=== PATIENT | male | born 1980 ===

== ENCOUNTER 2018-06-30 13:13 | Observation (INO) | payer MEDICAID ==
[2018-06-30] MEDS: NITROGLYCERIN 0.4MG SL TABLET #25 BTL SL PRN ×3 (13:43→13:59)
[2018-06-30 13:46] LABS: BASO % 0.2 % (0-6); EOS % 0.4 % (0-6); GRAN % 68.9 % (47-80); HEMATOCRIT 42.3 % (42.0-52.0); HEMOGLOBIN 14.6 gm/dl (14.0-18.0); LYMPH % 18.8 % (16-45); MEAN CELL VOLUME 84.4 fl (81-97); MEAN CORPUSCULAR HEMOGLOBIN 29.1 pg (27-33); MEAN CORPUSCULAR HGB CONC 34.5 g/dl (32-36); MONO % 11.7 % (0-9); PLATELET COUNT 400 K/uL (130-400); RED BLOOD COUNT 5.01 M/uL (4.40-5.70); RED CELL DISTRIBUTION WIDTH 13.5 % (11.5-14.5); WHITE BLOOD COUNT W/O DIFF 13.4 K/uL (4.2-12.2)
[2018-06-30 13:55] LABS: BLOOD UREA NITROGEN 15 mg/dL (6-20)
[2018-06-30 13:56] LABS: CREATININE 1.1 mg/dL (0.7-1.2); EST GLOMERULAR FILTRATION RATE > 60 mL/min; TOTAL PROTEIN 7.5 g/dL (6.6-8.7)
[2018-06-30 13:58] LABS: GLUCOSE,RANDOM 112 mg/dL (74-109)
[2018-06-30 14:01] LABS: ALB/GLOB RATIO 1.6 (1.1-1.8); ALBUMIN 4.6 g/dL (4.0-5.0); ALKALINE PHOSPHATASE 72 U/L (55-149); ALT/SGPT 30 U/L (<41); AST/SGOT 68 U/L (10.0-50.0)
[2018-06-30 14:19] LABS: CREATINE PHOSPHOKINASE 4060 U/L (39-308)
[2018-06-30] MEDS ORDERED: KETOROLAC 30 MG/ML VIAL IVP ONE (14:20)
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
[2018-06-30] MEDS ORDERED: 0.9 % SODIUM CHLORIDE 1,000 ML BAG IV ONE (14:32)
[2018-06-30 16:59] LABS: URINE BILIRUBIN NEGATIVE (NEGATIVE); URINE BLOOD NEGATIVE (NEGATIVE); URINE COLOR YELLOW; URINE GLUCOSE (UA) NEGATIVE (NEGATIVE); URINE KETONE 15 mg/dL (NEGATIVE); URINE LEUKOCYTE ESTERASE SMALL (NEGATIVE); URINE NITRITE NEGATIVE (NEGATIVE); URINE PROTEIN NEGATIVE (NEGATIVE); URINE UROBILINOGEN 0.2 E.U./dL (0.20 - 1.00)
[2018-06-30 17:05] LABS: URINE APPEARANCE SL CLOUDY
[2018-06-30 17:06] LABS: URINE BACTERIA FEW; URINE MUCUS MODERATE; URINE RBC NONE SEEN (NONE SEEN)
[2018-06-30] MEDS ORDERED: NITROGLYCERIN 0.4MG SL TABLET #25 BTL SL PRN (17:57)
[2018-06-30] MEDS ORDERED: 0.9 % SODIUM CHLORIDE 1000ML 1,000 ML IV PRN (17:57)
[2018-06-30] MEDS ORDERED: TEMAZEPAM 15 MG CAPSULE PO PRN (17:57)
[2018-06-30] MEDS: ACETAMINOPHEN 500 MG TABLET PO PRN (20:14)
[2018-06-30] MEDS: TRAMADOL HCL 50 MG TABLET PO PRN (22:08)
[2018-06-30 23:15] LABS: BASO % 0.3 % (0-6); EOS % 1.4 % (0-6); GRAN % 56.2 % (47-80); HEMATOCRIT 40.4 % (42.0-52.0); HEMOGLOBIN 13.4 gm/dl (14.0-18.0); LYMPH % 31.6 % (16-45); MEAN CELL VOLUME 86.3 fl (81-97); MEAN CORPUSCULAR HEMOGLOBIN 28.6 pg (27-33); MEAN CORPUSCULAR HGB CONC 33.2 g/dl (32-36); MEAN PLATELET VOLUME 9.3 fl (7.4-10.4); MONO % 10.5 % (0-9); PLATELET COUNT 392 K/uL (130-400); RED BLOOD COUNT 4.68 M/uL (4.40-5.70); RED CELL DISTRIBUTION WIDTH 13.5 % (11.5-14.5); WHITE BLOOD COUNT W/O DIFF 12.2 K/uL (4.2-12.2)
[2018-06-30 23:31] LABS: ALB/GLOB RATIO 1.4 (1.1-1.8); ALKALINE PHOSPHATASE 71 U/L (55-149); ALT/SGPT 33 U/L (<41); AST/SGOT 83 U/L (10.0-50.0); BLOOD UREA NITROGEN 18 mg/dL (6-20); CREATININE 1.3 mg/dL (0.7-1.2); EST GLOMERULAR FILTRATION RATE > 60 mL/min; GLUCOSE,RANDOM 108 mg/dL (74-109); TOTAL PROTEIN 6.8 g/dL (6.6-8.7)
[2018-06-30 23:32] LABS: CKMB 6.7 ng/mL (<6.73)
[2018-07-01 00:36] LABS: CKMB RELATIVE INDEX 0.1 % (0-4)
[2018-07-01] MEDS: 0.9 % SODIUM CHLORIDE 1000ML 1,000 ML IV PRN ×3 (02:00→20:00)
[2018-07-01] MEDS: TRAMADOL HCL 50 MG TABLET PO PRN ×2 (05:27→18:05)
[2018-07-01] MEDS: ACETAMINOPHEN 500 MG TABLET PO PRN (06:26)
--- NOTE | 2018-07-01 07:20 | RADIOLOGY REPORT ---
EXAM: CHEST, TWO VIEWS HISTORY: CHEST PAIN. TECHNIQUE: Two views of the chest were obtained. Comparison: None. FINDINGS: The cardiac silhouette is within normal size limits. No focal pulmonary consolidation. No pleural effusion or pneumothorax. No definite acute osseous findings. IMPRESSION: NO ACUTE CHEST FINDINGS. JOB NUMBER: [id number] MTDD
[2018-07-01 07:25] LABS: BASO % 0.3 % (0-6); EOS % 1.5 % (0-6); GRAN % 62.2 % (47-80); HEMOGLOBIN 13.3 gm/dl (14.0-18.0); LYMPH % 23.6 % (16-45); MEAN CELL VOLUME 86.6 fl (81-97); MEAN CORPUSCULAR HEMOGLOBIN 28.7 pg (27-33); MEAN CORPUSCULAR HGB CONC 33.3 g/dl (32-36); MEAN PLATELET VOLUME 8.6 fl (7.4-10.4); MONO % 12.4 % (0-9); PLATELET COUNT 366 K/uL (130-400); RED BLOOD COUNT 4.62 M/uL (4.40-5.70); RED CELL DISTRIBUTION WIDTH 13.5 % (11.5-14.5); WHITE BLOOD COUNT W/O DIFF 10.2 K/uL (4.2-12.2)
[2018-07-01 07:42] LABS: ALB/GLOB RATIO 1.4 (1.1-1.8); ALBUMIN 3.9 g/dL (4.0-5.0); ALKALINE PHOSPHATASE 64 U/L (55-149); ALT/SGPT 32 U/L (<41); AST/SGOT 73 U/L (10.0-50.0); BLOOD UREA NITROGEN 12 mg/dL (6-20); EST GLOMERULAR FILTRATION RATE > 60 mL/min; GLUCOSE,RANDOM 101 mg/dL (74-109); TOTAL PROTEIN 6.6 g/dL (6.6-8.7)
[2018-07-01 07:54] LABS: CKMB 6.3 ng/mL (<6.73)
[2018-07-01] MEDS: MORPHINE SULFATE 10 MG/ML VIAL IVP PRN ×3 (08:16→18:06)
[2018-07-01 08:26] LABS: CKMB RELATIVE INDEX 0.1 % (0-4)
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
[2018-07-01 09:48] LABS: AMPHETAMINE SCREEN URINE DETECTED; BARBITURATE SCREEN URINE NOT DETECTED; BENZODIAZEPINE SCREEN URINE DETECTED; COCAINE SCREEN URINE NOT DETECTED; METHADONE SCREEN URINE NOT DETECTED; METHAMPHETAMINE SCREEN DETECTED; OPIATE SCREEN URINE DETECTED; OXYCODONE SCREEN URINE NOT DETECTED; PHENCYCLIDINE SCREEN URINE NOT DETECTED; PROPOXYPHENE SCREEN URINE NOT DETECTED; THC SCREEN URINE DETECTED; TRICYCLIC ANTIDEPRESSANT SCRN NOT DETECTED
[2018-07-01] MEDS: ASPIRIN 325 MG TAB ENTERIC-COATED PO SCH (14:17)
[2018-07-02] MEDS: 0.9 % SODIUM CHLORIDE 1000ML 1,000 ML IV PRN (04:00)
[2018-07-02] MEDS: TRAMADOL HCL 50 MG TABLET PO PRN (06:48)
[2018-07-02] MEDS: ACETAMINOPHEN 500 MG TABLET PO PRN (06:49)
[2018-07-02 07:02] LABS: BLOOD UREA NITROGEN 7 mg/dL (6-20); CREATININE 0.9 mg/dL (0.7-1.2); EST GLOMERULAR FILTRATION RATE > 60 mL/min; GLUCOSE,RANDOM 93 mg/dL (74-109)
[2018-07-02 07:13] LABS: CREATINE PHOSPHOKINASE 2354 U/L (39-308)
[2018-07-02] MEDS: ASPIRIN 325 MG TAB ENTERIC-COATED PO SCH (09:13)
--- NOTE | 2018-07-02 10:13 | Discharge Summary ---
Providers Discharge Summary Date: 07/02/18 Date of admission: 06/30/18 17:37 Attending physician: LARA BAXTER Consults: Consult Orders 06/30/18 19:24 Consult - Case Management Now Comment: Reason For Exam: homeless Physical Exam - Vital Signs Vital Signs: Vital Signs - Last 24 Hrs Temp Pulse Resp BP Pulse Ox 07/02/18 09:02 97.8 F 81 16 129/77 98 07/02/18 09:00 85 16 07/02/18 06:00 98.1 F 64 18 137/86 95 07/01/18 21:00 71 20 07/01/18 20:00 97.8 F 71 20 159/90 97 07/01/18 17:00 98.1 F 82 18 160/102 98 07/01/18 13:00 98.0 F 73 18 158/94 97 - General General Appearance: Alert, Oriented x3, Cooperative, Mild distress Limitations: No limitations - Head Head exam: Normal inspection - Eye Eye exam: Normal appearance, PERRL, EOMI Pupils: Normal accommodation - ENT ENT exam: Normal exam, Mucous membranes moist, Normal external ear exam, Normal orophraynx Ear exam: Normal external inspection. negative: External canal tenderness Nasal Exam: Normal inspection. negative: Discharge, Sinus tenderness Mouth exam: Normal external inspection, Tongue normal Teeth exam: Normal inspection. negative: Dental caries Throat exam: Normal inspection. negative: Tonsillar erythema, Tonsillar exudate - Neck Neck exam: Normal inspection, Full ROM. negative: Tenderness - Respiratory Respiratory exam: Normal lung sounds bilaterally. negative: Respiratory distress - Cardiovascular Cardiovascular Exam: Regular rate, Normal rhythm, Normal heart sounds Peripheral Pulses: 3+: Radial (R), Radial (L), Dorsalis Pedis (R), Dorsalis Pedis (L) - GI/Abdominal GI/Abdominal exam: Soft, Normal bowel sounds. negative: Tenderness - Rectal Rectal exam: Deferred - exam: Deferred - Extremities Extremities exam: Normal inspection, Full ROM, Normal capillary refill, Tenderness (calf muscle tenderness), Other - Back Back exam: Reports: Normal inspection, Full ROM. Denies: Muscle spasm, Rash noted, Tenderness - Neurological Neurological exam: Alert, CN II-XII intact, Normal gait, Oriented X3 - Psychiatric Psychiatric exam: Normal affect, Normal mood - Skin Skin exam: Dry, Intact, Normal color, Warm Hospitalization - Hospitalization Admission Diagnosis: cp, elevated cpk - Problem List/Discharge Diagnosis (1) Rhabdomyolysis Current Visit: Yes Status: Acute Base Code: M62.82 - RHABDOMYOLYSIS Comment: 07/02/18: - elevated CK > 4000, 2354 - continous IVF, morphine 4mg Q4h PRN - repeat electrolytes in the morning. (2) Chest pain Current Visit: Yes Status: Acute Discharge Diagnosis: Chest pain type: other chest pain Qualified Code(s): R07.89 - Other chest pain; R07.8 - Other chest pain Base Code: R07.9 - CHEST PAIN, UNSPECIFIED Comment: 07/02/18: - R/O ACS, troponins negative x 3. - EKG: NSR, no acute changes. - surveillance monitor: no acute arrythmias on monitor. - Morphine 1mg IV Q4H PRN , Ultram 50mg PO Q6H PRN (3) Elevated creatine kinase level Current Visit: Yes Status: Acute Base Code: R74.8 - ABNORMAL LEVELS OF OTHER SERUM ENZYMES Comment: 07/02/18: - CK 4990,4092,2354 - DDx: trauma, drugs, extreme cold temps likely since pt was walking outside for unknown time period. - Check UDS, repeat electrolytes, pt warming and continuous IV fluids for now. (4) Positive urine drug screen Current Visit: Yes Status: Acute Base Code: R82.5 - ELEVATED URINE LEVELS OF DRUG/MEDS/BIOL SUBST Comment: 07/02/18: - UDS + amphetamines, cannabis, benzos. (5) Deafness Current Visit: Yes Status: Acute Base Code: H91.90 - UNSPECIFIED HEARING LOSS, UNSPECIFIED EAR Comment: 07/02/18: - 2/2 meningitis infection as child. - sign language facilitated and I was able to communicate effectively with the patient. (6) Full code status Current Visit: Yes Status: Acute Base Code: Z78.9 - OTHER SPECIFIED HEALTH STATUS Comment: 07/02/18: - FULL CODE - Hospitalization Course Hospital Course: Mr. Medley is a 38 y/o male who presented to the ED with complaint of chest pain. The patient was brought in by EMS after being found wondering the streets in [place].The details of how this patient came to be on the streets is unclear at this time and the patient deaf and not able to provide an account. However, according to his sister in-law and brother the patient is homeless and had an argument with is girlfriend yesterday but further information is not known. ED course: The patient initial workup revealed elevated creatinine kinase and mild elevation in liver enzymes but s otherwise unremarkable. Chest xray was negative for opacity of infiltrate and ECG did not show any acute changes. The patient was given IV fluids, Aspirin 325mg, IV morphine and Ultram. He is admitted to the general medical floor for serial troponins to rule our acute coronary syndrome. On bedside examination this morning the patient does not appear to be in acute distress but still complains of musculoskeletal pain. UDS drawn this morning showed the presence of amphetamines, cannabis and benzodiazepines. 07/02/18: Follow up assessment revealed resolution in muscle pain. The patient is no longer experiencing hallucinations and is doing better this morning. Labs revealed a decrease in CK and no other electrolyte disturbance. Social work has arranged to have to patient temporarily stay with family members and then more permanent housing will be sought. Procedures: Imaging and X-Rays 06/30/18 14:20 CXR [CHEST 2 VIEWS] [RAD] Stat Cardiology Procedures 06/30/18 13:31 Hr Specialist NOW EKG NOW 06/30/18 17:57 EKG QDX2@0600 Abnormal Labs: Abnormal Lab Results 06/30/18 06/30/18 06/30/18 Range/Units 13:40 13:40 16:57 WBC 13.4 H (4.2-12.2) K/uL Hgb (14.0-18.0) gm/dl Hct (42.0-52.0) % Monocytes % 11.7 H (0-9) % Creatinine (0.7-1.2) mg/dL Random Glucose 112 H (74-109) mg/dL AST 68 H (10.0-50.0) U/L Creatine Kinase 4060 H (39-308) U/L CK-MB (CK-2) 7.0 H (<6.73) ng/mL Albumin (4.0-5.0) g/dL Urine Ketones 15 mg/dl H (NEGATIVE) Ur Leukocyte Esterase Small H (NEGATIVE) 06/30/18 06/30/18 06/30/18 Range/Units 23:00 23:00 23:00 WBC (4.2-12.2) K/uL Hgb 13.4 L (14.0-18.0) gm/dl Hct 40.4 L (42.0-52.0) % Monocytes % 10.5 H (0-9) % Creatinine 1.3 H (0.7-1.2) mg/dL Random Glucose (74-109) mg/dL AST 83 H (10.0-50.0) U/L Creatine Kinase 4990 H (39-308) U/L CK-MB (CK-2) (<6.73) ng/mL Albumin (4.0-5.0) g/dL Urine Ketones (NEGATIVE) Ur Leukocyte Esterase (NEGATIVE) 07/01/18 07/01/18 07/01/18 Range/Units 07:12 07:12 07:12 WBC (4.2-12.2) K/uL Hgb 13.3 L (14.0-18.0) gm/dl Hct 40.0 L (42.0-52.0) % Monocytes % 12.4 H (0-9) % Creatinine (0.7-1.2) mg/dL Random Glucose (74-109) mg/dL AST 73 H (10.0-50.0) U/L Creatine Kinase 4092 H (39-308) U/L CK-MB (CK-2) (<6.73) ng/mL Albumin 3.9 L (4.0-5.0) g/dL Urine Ketones (NEGATIVE) Ur Leukocyte Esterase (NEGATIVE) 07/02/18 Range/Units 06:41 WBC (4.2-12.2) K/uL Hgb (14.0-18.0) gm/dl Hct (42.0-52.0) % Monocytes % (0-9) % Creatinine (0.7-1.2) mg/dL Random Glucose (74-109) mg/dL AST (10.0-50.0) U/L Creatine Kinase 2354 H (39-308) U/L CK-MB (CK-2) (<6.73) ng/mL Albumin (4.0-5.0) g/dL Urine Ketones (NEGATIVE) Ur Leukocyte Esterase (NEGATIVE) Discharge Plan - Discharge Instructions Activity at Discharge: Resume Usual Activities As Tolerated Diet at Discharge: Regular Diet Additional Instructions: FOLLOW UP WITH DR. BAXTER AT [facility] WITHIN THE WEEK. DO NOT USE XANAX,ATIVAN OR ADDERRAL. Quality Measures - Quality Measures Quality Measures: Documentation of Current Medications in Medical Record, Screening for High Blood Pressure and F/U Documented - Current Medications Quality Measure: Measure #130: Documentation of Current Medications Documentation of Current Medications: <Current Medications Documented/Reviewed> [G8427] - Blood Pressure Screening Quality Measure: Screening for High Blood Pressure and Follow-Up Documented Does Patient Have Any of the Following: No Blood Pressure Classification: Hypertensive Reading Systolic Measurement: 163 Diastolic Measurement: 102 Screening for High Blood Pressure: < Pre-Hypertensive BP, F/U Documented > [ G8950] Pre-Hypertensive Follow-up Interventions: Follow-up with rescreen every year. - Elder Abuse Suspicion Index EASI Reference Information: Kate SUAREZ, Merritt C, Darline D, Ramos Hutchins.Development and validation of a tool to assist physicians identification of elder abuse: The Elder Abuse Suspicion Index (EASI ). Journal of Elder Abuse and Neglect, 2008; 20 (3): 276-300.
== END 2018-07-02 10:45 | disposition home or self-care (01) ==
LOC: EEVIPCON 13:13 → ER 13:13 → MEDSURG 17:37
PROVIDERS: ADMIT Internal Medicine; ATTEND Internal Medicine
DX: R07.89 Other chest pain (principal); M62.82 Rhabdomyolysis; R74.8 Abnormal levels of other serum enzymes; R82.5 Elevated urine levels of drugs, medicaments and biological substances; F12.90 Cannabis use, unspecified, uncomplicated; H91.90 Unspecified hearing loss, unspecified ear; F13.20 Sedative, hypnotic or anxiolytic dependence, uncomplicated
CPT/HCPCS: 82550 ×3; 85025; 82553 ×2; 80048; 80053 ×2; 81001; 80305; 84484 ×2; 85379; 85027 ×2; 71046; 93005 ×3; 93010 ×2; G0378 ×3; J1885; J2270; 96374; 99217; 99220; 99285; J7030

== ENCOUNTER 2018-07-05 08:37 | Emergency (ER) | payer MEDICAID ==
--- NOTE | 2018-07-05 08:46 | Emergency Department Record ---
History of Present Illness - General Stated Complaint: CHEST PAINS Time Seen by Provider: 07/05/18 08:37 Source: Patient Mode of Arrival: Ambulatory Limitations: Other (Deaf) - History of Present Illness Initial Comments: 38 yo male presents with chest pain, abdominal pain, back pain, leg pains, nausea, vomiting. He is having diarrhea as well. He reports the diarrhea started early this morning. He has had 4-5 episodes. He was recently admitted to [facility] for overnight observation for chest pain. He is deaf but is able to communicate effectively. He has some cough. No fevers. No blood in the vomit. The symptoms returned last night. He states he developed chills and shakes last night then the pain all over his body. No headache. He has pressure in his ears bilaterally. No sore throat. The patient had serial normal troponins during his admission. His CK total was 4000. By report he had been walking a very long distance when picked up by ambulance. MD Complaint: Chest pain, Other (back, abdominal pain, nausea with vomiting) -: Hour(s) Onset: During rest Pain Location: Substernal Pain Radiation: Back, Abdomen Severity: Moderate Quality: Aching, Tightness Consistency: Constant Improves With: Nothing Worsens With: Nothing Context: Other (Recent hospitalization) Anginal Symptoms: Nausea, Vomiting - Related Data Previous Rx's Medication Instructions Recorded Ondansetron [Zofran Odt] 4 mg PO Q8H #15 tab.rapdis 07/05/18 Ranitidine HCl [Zantac] 150 mg PO BID #30 tablet 07/05/18 Allergies Allergy/AdvReac Type Severity Reaction Status Date / Time No Known Drug Allergies Allergy Verified 07/05/18 08:43 Review of Systems Constitutional: Denies: Chills, Fever, Malaise, Weakness Eyes: Denies: Eye discharge ENT: Reports: As per HPI, Hearing loss. Denies: Congestion, Throat pain Respiratory: Reports: Cough Cardiovascular: Reports: Chest pain. Denies: Dyspnea on exertion, Edema, Palpitations, Syncope Endocrine: Denies: Fatigue, Polydipsia, Polyuria Gastrointestinal: Reports: Abdominal pain, Nausea, Vomiting. Denies: Constipation, Diarrhea Genitourinary: Denies: Dysuria, Frequency, Hematuria Musculoskeletal: Reports: Back pain, Neck pain. Denies: Arthralgia, Joint swelling, Myalgia Skin: Denies: Bruising, Change in color, Rash Neurological: Denies: Confusion, Headache, Tingling, Weakness Psychiatric: Denies: Anxiety Hematological/Lymphatic: Denies: Blood Clots, Easy bleeding, Easy bruising Past Medical History - SOCIAL HISTORY Smoking Status: Never smoker Drug Use: Occasional Drug Use Detail:: Marijuana - RESPIRATORY Hx Respiratory Disorders: No - CARDIOVASCULAR Hx Cardio Disorders: Yes Hx Palpitations: Yes - NEURO Hx Neuro Disorders: No - GI Hx GI Disorders: No - Hx Genitourinary Disorders: No - ENDOCRINE Hx Endocrine Disorders: No Hx Diabetes: No Hx Thyroid Disease: No - MUSCULOSKELETAL Hx Musculoskeletal Disorders: No - PSYCH Hx Psych Problems: No - HEMATOLOGY/ONCOLOGY Hx Hematology/Oncology Disorders: No Family Medical History Family Hx Comment (NOT TO BE USED IN PLACE OF ITEMS BELOW): pt states there is diabetes in the family not clear who. Hx Diabetes: Father, Mother Hx HTN: Father, Mother Hx Seizures: Children Physical Exam - General General Appearance: Alert, Oriented x3, Cooperative, No acute distress Limitations: No limitations - Head Head exam: Atraumatic, Normal inspection - Eye Eye exam: Normal appearance, PERRL. negative: Conjunctival injection, Scleral icterus - ENT ENT exam: Normal exam, Mucous membranes moist, Normal orophraynx, TM's normal bilaterally. negative: Mucous membranes dry Ear exam: Normal external inspection Nasal Exam: Normal inspection Mouth exam: Normal external inspection Throat exam: Normal inspection - Neck Neck exam: Normal inspection - Respiratory Respiratory exam: Normal lung sounds bilaterally, Chest wall tenderness (tender sternum). negative: Respiratory distress, Rhonchi, Stridor, Wheezes - Cardiovascular Cardiovascular Exam: Regular rate, Normal rhythm, Normal heart sounds Peripheral Pulses: 2+: Radial (R), Radial (L) - GI/Abdominal GI/Abdominal exam: Soft, Tenderness (tender epigastrium, tender RUQ but soft.). negative: Distended, Guarding, Rebound, Rigid - Rectal Rectal exam: Deferred - exam: Deferred - Extremities Extremities exam: Normal inspection, Tenderness (muscle tenderness). negative: Pedal edema - Back Back exam: Reports: CVA tenderness (R), CVA tenderness (L), Tenderness - Neurological Neurological exam: Alert, Oriented X3. negative: Altered - Psychiatric Psychiatric exam: Normal affect, Normal mood. negative: Agitated, Anxious - Skin Skin exam: Dry, Intact, Normal color, Warm Course - Reevaluation(s) Reevaluation #1: EMR reviewed from 06/30 admission EKG #1: 08:39 Rate: 89 Rhythm: Sinus [place]: Normal Intervals: Normal ST segments: Normal Prior: 06/30/18 No changes 07/05/18 08:46 Atypical symptoms with pain all over, nausea, chest wall tenderness, back tenderness, abdominal tenderness. 07/05/18 09:11 07/05/18 09:24 CBC reviewed. WBC 16.2, Hgb 15, Plt 444 CMP reviewed. Normal Troponin normal D-Dimer normal CK 178 (down from a peek of 4999 on 06/30/18) MB 2.0 Lipase normal 07/05/18 09:26 07/05/18 09:29 On recheck he still has epigastric pain and abdominal tenderness on examination. His nausea and vomiting are improved. No additional diarrhea in the ED since his episode at arrival. Given his elevated WBC count and abdominal tenderness a CT of the abdomen and pelvis was ordered. 07/05/18 09:37 The UA is negative. Culture from 06/30/18 Mixed isha. The UDS is positive for cannabis. 07/05/18 10:58 EKG #2: 10:48 repeat due to mild artifact in initial Rate: 76 Rhythm: sinus [place]: normal Intervals: normal ST segments: no acute changes, artifact remained in one complex Prior: see#1 07/05/18 11:37 The patient continues to do well. No complaints of nausea. Very atypical for ACS with NV, diarrhea, pain all over including back, chest, abdomen, legs. CT scan of the abdomen is pending 07/05/18 11:[address] scan was negative for acute findings. Incidental adrenal nodule and small fat containing hernia. Repeat troponin ordered. 07/05/18 11:57 I reviewed today's visit with Dr Euceda. The patient has follow up scheduled in the office already He will be DC'd on Zofran and Zantac 07/05/18 12:26 Repeat Troponin is normal We discussed DC, home care, reasons to return and the follow up with Dr Euceda He is doing very well without any pain, nausea or diarrhea Medical Decision Making - Lab Data Result diagrams: 07/05/18 08:48 07/05/18 08:48 Disposition Disposition: Discharge Clinical Impression: Vomiting and diarrhea, Atypical chest pain Disposition: Home, Self-Care Condition: (1) Good Instructions: Chest Pain (ED), Acute Nausea and Vomiting (ED), Acute Diarrhea ( ED) Additional Instructions: Follow up as scheduled with your doctor next week Return to the ER for a recheck if worse, any new concerns or questions Take the prescriptions provided as directed for nausea Review this ER visit and the tests performed with your family doctor (Dr Euceda at the [facility]) Prescriptions: Ondansetron [Zofran Odt] 4 mg PO Q8H #15 tab.rapdis Ranitidine HCl [Zantac] 150 mg PO BID #30 tablet Forms: Patient Portal Access Time of Disposition: 12:27 Quality - Quality Measures Quality Measures: N/A - Blood Pressure Screening Does Patient Have Any of the Following: No Blood Pressure Classification: Pre-Hypertensive BP Reading Systolic Measurement: 140 Diastolic Measurement: 83 Screening for High Blood Pressure: < Pre-Hypertensive BP, F/U Documented > [ G8950] Pre-Hypertensive Follow-up Interventions: Referral to alternative/primary care provider.
[2018-07-05] MEDS ORDERED: ONDANSETRON HCL IV 4 MG/2 ML VIAL IVP ONE (08:54)
[2018-07-05] MEDS ORDERED: 0.9 % SODIUM CHLORIDE 1,000 ML BAG IV ONE (08:54)
[2018-07-05 09:00] LABS: BASO % 0.2 % (0-6); EOS % 1.7 % (0-6); GRAN % 79.1 % (47-80); HEMATOCRIT 45.7 % (42.0-52.0); HEMOGLOBIN 15.2 gm/dl (14.0-18.0); LYMPH % 10.2 % (16-45); MEAN CELL VOLUME 87.7 fl (81-97); MEAN CORPUSCULAR HEMOGLOBIN 29.2 pg (27-33); MEAN CORPUSCULAR HGB CONC 33.3 g/dl (32-36); MEAN PLATELET VOLUME 9.5 fl (7.4-10.4); MONO % 8.8 % (0-9); PLATELET COUNT 444 K/uL (130-400); RED BLOOD COUNT 5.21 M/uL (4.40-5.70); RED CELL DISTRIBUTION WIDTH 13.8 % (11.5-14.5); WHITE BLOOD COUNT W/O DIFF 16.2 K/uL (4.2-12.2)
[2018-07-05 09:08] LABS: BLOOD UREA NITROGEN 14 mg/dL (6-20); CREATININE 0.9 mg/dL (0.7-1.2); EST GLOMERULAR FILTRATION RATE > 60 mL/min
[2018-07-05 09:09] LABS: LIPASE 49 U/L (13-60); TOTAL PROTEIN 7.6 g/dL (6.6-8.7)
[2018-07-05 09:11] LABS: GLUCOSE,RANDOM 111 mg/dL (74-109)
[2018-07-05 09:13] LABS: ALB/GLOB RATIO 1.4 (1.1-1.8); ALBUMIN 4.4 g/dL (4.0-5.0); ALT/SGPT 26 U/L (<41); AST/SGOT 16 U/L (10.0-50.0)
[2018-07-05 09:14] LABS: ALKALINE PHOSPHATASE 72 U/L (55-149); CREATINE PHOSPHOKINASE 178 U/L (39-308)
[2018-07-05 09:18] LABS: URINE APPEARANCE CLEAR; URINE BILIRUBIN NEGATIVE (NEGATIVE); URINE BLOOD TRACE-I (NEGATIVE); URINE COLOR YELLOW; URINE GLUCOSE (UA) NEGATIVE (NEGATIVE); URINE KETONE NEGATIVE (NEGATIVE); URINE LEUKOCYTE ESTERASE NEGATIVE (NEGATIVE); URINE NITRITE NEGATIVE (NEGATIVE); URINE PROTEIN NEGATIVE (NEGATIVE); URINE UROBILINOGEN 0.2 E.U./dL (0.20 - 1.00)
[2018-07-05 09:27] LABS: AMPHETAMINE SCREEN URINE NOT DETECTED; BARBITURATE SCREEN URINE NOT DETECTED; BENZODIAZEPINE SCREEN URINE NOT DETECTED; COCAINE SCREEN URINE NOT DETECTED; METHADONE SCREEN URINE NOT DETECTED; METHAMPHETAMINE SCREEN NOT DETECTED; OPIATE SCREEN URINE NOT DETECTED; OXYCODONE SCREEN URINE NOT DETECTED; PHENCYCLIDINE SCREEN URINE NOT DETECTED; PROPOXYPHENE SCREEN URINE NOT DETECTED; THC SCREEN URINE DETECTED; TRICYCLIC ANTIDEPRESSANT SCRN NOT DETECTED
[2018-07-05] MEDS ORDERED: KETOROLAC 30 MG/ML VIAL IVP ONE (09:28)
[2018-07-05 09:31] LABS: URINE EPITHELIAL CELLS NONE SEEN (FEW); URINE MUCUS 2+; URINE RBC 0 - 2 (NONE SEEN); URINE WBC 0 - 2 (0-2/hpf)
[2018-07-05] MEDS ORDERED: ONDANSETRON 4 MG ODT TABLET SL ONE (12:26)
--- NOTE | 2018-07-07 08:34 | CT SCAN REPORT ---
EXAM: CT OF THE ABDOMEN AND PELVIS WITH CONTRAST HISTORY: EPIGASTRIC PAIN AND DIARRHEA. TECHNIQUE: CT of the abdomen and pelvis was obtained with 100 ml Omnipaque 300 intravenous contrast as well as oral contrast. Comparison: None. FINDINGS: Mild dependent lower lobe atelectasis bilaterally. The lung bases are otherwise clear. Unremarkable appearance of the liver, gallbladder, spleen, pancreas and right adrenal gland. Round 15 mm indeterminate density left adrenal gland nodule. Small bilateral renal cortical defects, otherwise symmetric renal perfusion. No hydronephrosis. The abdominal aorta is of normal course and caliber with minimal calcification at the level of the iliac arteries. Oral contrast material reaches the colonic splenic flexure. No focal colonic thickening or inflammatory changes are seen. The appendix is normal. The stomach and small bowel are nondilated. No suspicious lymphadenopathy is seen. No free air or free fluid. Unremarkable appearance of the urinary bladder. Small fat containing left inguinal hernia. No acute osseous findings. IMPRESSION: 1. NO ACUTE FINDINGS IN THE ABDOMEN OR PELVIS. 2. SUGGESTION OF NONSPECIFIC MILD BILATERAL RENAL CORTICAL SCARRING. 3. SMALL FAT CONTAINING LEFT INGUINAL HERNIA. TINY FAT CONTAINING UMBILICAL HERNIA. 4. INCIDENTAL INDETERMINATE LEFT ADRENAL NODULE POSSIBLY AN ADENOMA; THIS MAY BE MORE DEFINITIVELY CHARACTERIZED WITH ADRENAL PROTOCOL MRI. JOB NUMBER: [id number] [facility]
== END 2018-07-05 12:58 | disposition home or self-care (01) ==
LOC: ER 08:37
DX: R07.89 Other chest pain (principal); R19.7 Diarrhea, unspecified; R11.2 Nausea with vomiting, unspecified; R10.13 Epigastric pain; R05 Cough
CPT/HCPCS: 99284 ×2; 96374; 96375; 96361; 82550; 83690; 85025; 82553; 80053; 81001; 80305; 84484; 85379; 74177; 93005; 93010; Q9967; J1885; J2405; J7030